=== PATIENT | male | born 1975 | race Caucasian/White ===

== ENCOUNTER 2019-03-01 09:53 | Outpatient (CLI) | payer BC ==
--- NOTE | 2019-03-01 11:09 | ULT ---
Thyroid ultrasound: 03/01/2019 COMPARISON: None HISTORY: Thyromegaly TECHNIQUE: Multiplanar grayscale sonographic imaging of the thyroid gland obtained FINDINGS: Thyroid isthmus measures 6 mm in AP dimension. The right lobe measures 6.3 x 3.1 x 3.7 cm and the left lobe measures 4.0 x 1.4 x 1.5 cm. There is a solid complex isoechoic nodule within the right lobe of the thyroid gland measuring 3.4 x 4.7 x 2.5 cm. Within the inferior aspect of the left lobe there is a complex solid and cystic nodule versus 2 adjac ent small cystic lesions. If this represents 1 solid and cystic nodule it measures 1.6 x 1.2 x 1.0 cm. However, it could represent 2 adjacent cystic nodules measuring up to 1.5 cm and 0.7 cm respectiv nils. IMPRESSION: Dominant solid nodule within the right lobe of the thyroid gland. TI-RADS Category 4-moderately suspicious. Recommend fine needle aspiration of the dominant thyroid no dule on the right given size greater than 1.5 cm. With respect to the abnormality within the inferior aspect of the left lobe, follow-up ultrasound is advised in 6 months.
--- NOTE | 2019-03-01 11:11 | MMO ---
Bilateral MAMMO Bilat Diag [facility]. CLINICAL HISTORY: Patient is 43 years old and is seen for diagnostic exam,lump or thickening and pain in the left breast. The patient has the following family history of breast cancer: mother, at age 36, malignant (generic). The patient has no personal history of cancer. VIEWS: The views performed were: bilateral craniocaudal with tomosynthesis; bilateral mediolateral oblique with tomosynthesis; and bilateral mediolateral with tomosynthesis. FILMS COMPARED: The present examination has been compared to a prior imaging study performed at [facility] on 03/01/2019. This study has been interpreted with the assistance of computer-aided detection. MAMMOGRAM FINDINGS: There are scattered fibroglandular densities. There is a focal asymmetry seen in the sub-areolar region of the left breast. Focal asymmetry correlates to the palpable abnormality in the sub-areolar region of the left breast. There are flame-shaped retroareolar density in the left breast retroareolar region, consistent with gynecomastia. There are no suspicious masses, suspicious calcifications, or new areas of architectural distortion. IMPRESSION: THERE IS NO MAMMOGRAPHIC EVIDENCE OF MALIGNANCY. THE RESULTS OF THIS EXAM WERE SENT TO THE PATIENT. ACR BI-RADS Category 2 - Benign finding MAMMOGRAPHY NOTE: 1. A negative mammogram report should not delay a biopsy if a dominant of clinically suspicious mass is present. 2. Approximately 10% to 15% of breast cancers are not detected by mammography. 3. Adenosis and dense breasts may obscure an underlying neoplasm. Reported by: MANNY MCMILLAN MD Electonically Signed: [id number]
--- NOTE | 2019-03-01 13:06 | ULT ---
LEFT BREAST DIAGNOSTIC ULTRASOUND: Date: 03/01/19 INDICATINO: Palpable abnormality of left breast with clear discharge. FINDINGS: Sonographic evaluation of the left retroareolar region demonstrates flame-shaped gynecomastia. IMPRESSION: BI-RADS Category 2 - Benign. Flame-shaped gynecomastia corresponds to the retroareolar mammographic d ensity. Patient was counseled on findings prior to [facility]. POS: OFF
== END 2019-03-01 09:54 | disposition home or self-care (01) ==
LOC: BICMAMMO 09:53
PROVIDERS: ATTEND Internal Medicine
DX: N63.20 Unspecified lump in the left breast, unspecified quadrant (principal); E01.0 Iodine-deficiency related diffuse (endemic) goiter; E04.1 Nontoxic single thyroid nodule
CPT/HCPCS: 76536; 77066; G0279

== ENCOUNTER 2019-04-19 10:23 | Day surgery (SDC) | payer BC ==
[2019-04-18 12:33] VITALS: BMI 48.2
[2019-04-19] MEDS ORDERED: Lidocaine 1% PF 5 ML VIAL ONE (10:33)
[2019-04-19] MEDS ORDERED: Sodium Bicarbonate 2.5 MEQ/5 ML VIAL ONE (10:33)
--- NOTE | 2019-04-19 11:32 | ULT ---
US Thyroid Needle Bx History: Thyroid nodule Comparison: Thyroid ultrasound February 2019 Findings: Patient was brought to the ultrasound suite. All questions were answered. Informed consent obtained. Timeout performed. The patient's right neck was prepped and draped in normal sterile fashion. Using ultrasound guidance the right thyroid nodule was accessed after adequate anesthesia with 10 mL of lidocaine. A total of 4 25-gauge fine-needle aspirations was performed. Patient tolerated the procedure well wit hout complication. Impression: Technically successful ultrasound-guided thyroid fine-needle aspiration.
[2019-04-19 11:50] VITALS: BP 119/53; TEMP 97.7
== END 2019-04-19 11:35 | disposition home or self-care (01) ==
LOC: ULT 10:23
PROVIDERS: ATTEND Student in an Organized Health Care Education/Training Program
PROC: 0G9H3ZX Drainage of Right Thyroid Gland Lobe, Percutaneous Approach, Diagnostic (ICD-10-PCS; principal; 2019-04-19)
DX: E04.1 Nontoxic single thyroid nodule (principal); E11.9 Type 2 diabetes mellitus without complications; F41.9 Anxiety disorder, unspecified; F31.9 Bipolar disorder, unspecified; K21.9 Gastro-esophageal reflux disease without esophagitis; J30.89 Other allergic rhinitis; Z87.891 Personal history of nicotine dependence; Z79.84 Long term (current) use of oral hypoglycemic drugs; Z88.8 Allergy status to other drugs, medicaments and biological substances; Z77.090 Contact with and (suspected) exposure to asbestos
CPT/HCPCS: 60100; 76942; 88173; J2001

== ENCOUNTER 2022-02-11 07:11 | Outpatient (CLI) | payer BC | END 2022-02-11 07:12 | disposition home or self-care (01) | LOC: BICULT 07:11 | PROVIDERS: ATTEND Student in an Organized Health Care Education/Training Program | DX: E04.1 Nontoxic single thyroid nodule (principal) | CPT/HCPCS: 76536 ==

== ENCOUNTER → 2022-03-28 | Day surgery (SDC) | payer BC ==
[2022-03-24 10:42] VITALS: BMI 46.6
[~2022-03-28] MED LIST: FLU VACC QS2022-23(6MOS UP)/PF 60 MCG/0.5 ML SYRINGE IM ONE
[2022-03-28 13:19] VITALS: BP 136/94; TEMP 97.8
== END | disposition home or self-care (01) ==
LOC: ULT 10:45
PROVIDERS: ATTEND Student in an Organized Health Care Education/Training Program
PROC: 0G9H3ZX Drainage of Right Thyroid Gland Lobe, Percutaneous Approach, Diagnostic (ICD-10-PCS; principal; 2022-03-28)
DX: E04.1 Nontoxic single thyroid nodule (principal); Z79.899 Other long term (current) drug therapy
CPT/HCPCS: 10005; 88173; 88305

== ENCOUNTER 2023-03-13 07:01 | Outpatient (CLI) | payer BC | END 2023-03-13 07:02 | disposition home or self-care (01) | LOC: BICULT 07:01 | PROVIDERS: ATTEND Physician Assistant | DX: E04.1 Nontoxic single thyroid nodule (principal) | CPT/HCPCS: 76536 ==

== ENCOUNTER 2023-04-24 14:59 | Outpatient (CLI) | payer BC | END 2023-04-24 15:00 | disposition home or self-care (01) | LOC: LABBT 14:59 | PROVIDERS: ATTEND Otolaryngology Plastic Surgery within the Head & Neck | DX: Z01.810 Encounter for preprocedural cardiovascular examination (principal); E07.89 Other specified disorders of thyroid | CPT/HCPCS: 93005; 93010 ==

== ENCOUNTER 2023-10-11 05:42 | Day surgery (SDC) | payer BC ==
[2023-10-09 10:07] VITALS: BMI 45.6
[2023-10-11] MEDS ORDERED: Heparin 10,000 UNITS/ 10 ML VIAL ONE (06:26)
[2023-10-11] MEDS ORDERED: Nitroglycerin 50 MG/250 ML BOT 0 ML ONE (06:26)
[2023-10-11] MEDS ORDERED: fentaNYL 50 mcg/mL 1 mL Vial ONE ×2 (06:58→11:46)
[2023-10-11] MEDS ORDERED: Midazolam HCl 2 mg/2 ml Vial ONE (06:59)
[2023-10-11] MEDS ORDERED: Protamine Sulfate 50 MG/5 ML VIAL ONE (07:40)
[2023-10-11] MEDS ORDERED: Iopamidol 370 76% 100 ML VIAL ONE (11:24)
== END 2023-10-11 14:55 | disposition home or self-care (01) ==
LOC: SDC 05:42
PROVIDERS: ATTEND Internal Medicine Cardiovascular Disease
PROC: 4A023N7 Measurement of Cardiac Sampling and Pressure, Left Heart, Percutaneous Approach (ICD-10-PCS; principal; 2023-10-11)
DX: R94.39 Abnormal result of other cardiovascular function study (principal); R07.89 Other chest pain; K21.9 Gastro-esophageal reflux disease without esophagitis; E78.00 Pure hypercholesterolemia, unspecified; I10 Essential (primary) hypertension; F31.9 Bipolar disorder, unspecified; E66.01 Morbid (severe) obesity due to excess calories; Z68.42 Body mass index [BMI] 45.0-49.9, adult; Z87.891 Personal history of nicotine dependence; Z79.899 Other long term (current) drug therapy
CPT/HCPCS: 85347; 93458; 99152; C1769; J1644; J2250; J2720; J3010; Q9967

== ENCOUNTER → 2024-04-03 | Outpatient (CLI) | payer BC | LOC: CT 07:50 | PROVIDERS: ATTEND Otolaryngology Plastic Surgery within the Head & Neck | DX: E01.0 Iodine-deficiency related diffuse (endemic) goiter (principal); E04.1 Nontoxic single thyroid nodule | CPT/HCPCS: 70491 ==

== ENCOUNTER 2025-01-10 09:12 | Outpatient (CLI) | payer BC | END 2025-01-10 09:13 | disposition home or self-care (01) | LOC: BICRAD 09:12 | PROVIDERS: ATTEND Internal Medicine | DX: M54.50 Low back pain, unspecified (principal); M47.816 Spondylosis without myelopathy or radiculopathy, lumbar region; M41.9 Scoliosis, unspecified | CPT/HCPCS: 72100 ==